=== PATIENT | male | born 1975 | race Caucasian/White ===

== ENCOUNTER → 2019-01-27 17:52 | Outpatient (CLI) | payer OTHER, SELFPAY ==
--- NOTE | 2019-01-27 18:12 | XR_ITS ---
PROCEDURE: XR CERVICAL SPINE 2V CLINICAL INDICATION: pain COMPARISON: CS23 CERVICAL SPINE-2 TO 3 VIEWS from 07/10/2014 FINDINGS: Normal alignment. There is mild degenerative disc disease at C5-C6 and C6-C7. No fracture or dislocation. No lytic or blastic change. IMPRESSION: Degenerative disc disease C5-C6 and C6-C7. These findings have developed since 07/10/2014 Dictated by: Shimon Cutler MD 01/27/2019 18:43 Electronically signed by Shimon Cutler MD in [place] 01/27/2019 18:43
--- NOTE | 2019-01-27 18:12 | XR_ITS ---
PROCEDURE: XR LUMBAR SPINE 2-3V CLINICAL INDICATION: pain Low back pain, bilateral leg pain COMPARISON: No exams were available for comparison FINDINGS: There is normal alignment. No fracture or dislocation. No lytic or blastic change. There is mild sclerosis of the SI joints. The disc spaces are well preserved. IMPRESSION: 1. Negative lumbar spine. 2. Mild sclerosis of the SI joints Dictated by: Shimon Cutler MD 01/27/2019 18:44 Electronically signed by Shimon Cutler MD in [place] 01/27/2019 18:44
--- NOTE | 2019-01-27 18:12 | XR_ITS ---
PROCEDURE: XR SHOULDER LT MIN 2V CLINICAL INDICATION: pain To the COMPARISON: SHOU3L [id number] VIEWS from 06/07/2015 SHOU3R [id number] VIEWS from 09/11/2015 SHOU3R [id number] VIEWS from 06/28/2016 SHOU3L [id number] VIEWS from 01/07/2017 FINDINGS: No fracture, dislocation, lytic change, or blastic change evident. No significant degenerative change IMPRESSION: No acute findings. Dictated by: Shimon Cutler MD 01/27/2019 18:42 Electronically signed by Shimon Cutler MD in [place] 01/27/2019 18:42
[2019-01-27 18:28] LABS: Basophils # 0.1 K/mm3 (0-0.2); Basophils % 0.8 % (0.1-2.0); Eosinophils # 0.2 K/mm3 (0.0-0.4); Eosinophils % 1.8 % (0.1-12.0); Hematocrit 42.9 % (42.0-52.0); Hemoglobin 14.1 g/dL (14.1-18.0); Lymphocytes # 2.8 K/mm3 (0.7-4.5); Lymphocytes % 26.5 % (10-50); Mean Corpuscular HGB Conc 32.8 g/dL (31.8-35.4); Mean Corpuscular Hemoglobin 31.8 pg (27.0-31.2); Mean Corpuscular Volume 96.7 fl (80-94); Mean Platelet Volume 8.2 fl (7.4-10.4); Monocytes # 0.6 K/mm3 (0.1-1.0); Monocytes % 5.7 % (1.7-9.3); Neutrophils # 6.9 K/mm3 (1.8-7.8); Neutrophils % 65.1 % (37.0-80.0); Platelet Count 268 K/mm3 (142-424); Red Blood Count 4.43 M/mm3 (4.60-6.20); Red Cell Distribution Width 13.3 % (11.5-17.5); White Blood Count 10.5 K/mm3 (4.8-10.8)
[2019-01-27 19:32] LABS: Erythrocyte Sedimentation Rate 9 mm/hr (0-15)
[2019-01-27 20:37] LABS: Alanine Aminotransferase 16 U/L (12-78); Albumin Level 4.7 gm/dL (3.4-5.0); Albumin/Globulin Ratio 1.5 (1.1-1.8); Alkaline Phosphatase 69 U/L (46-116); Anion Gap 14.6 mEq/L (5-15); Aspartate Amino Transferase 15 U/L (15-37); Bilirubin,Total 0.3 mg/dL (0.2-1.0); Blood Urea Nitrogen 12 mg/dL (7-18); Calcium 9.5 mg/dL (8.5-10.1); Carbon Dioxide 30 mmol/L (21.0-32.0); Chloride 101 mmol/L (98-107); Creatinine,Serum 0.89 mg/dL (0.70-1.30); Estimated Glomerular Filt Rate 93 ml/min (>60); GFR (African American) 112 ML/MIN (>60); Globulin 3.2 gm/dl (1.3-3.2); Glucose 77 mg/dL (74-106); Potassium 3.6 mmoL/L (3.5-5.1); Sodium 142 mmol/L (136-145); T4 (Thyroxine) 8.2 ug/dl (4.7-13.3); Thyroid Stimulating Hormone 1.39 uIU/ml (0.358-3.740); Total Protein,Serum 7.9 gm/dL (6.4-8.2)
[2019-01-27 20:38] LABS: C-Reactive Protein < 0.2 mg/dL (0.0-0.9)
[2019-01-29 08:07] LABS: Vitamin D 25 Hydroxy 26.7 ng/mL (30.0-100.0)
[2019-01-29 13:14] LABS: Anti-Centromere B Antibodies <0.2 AI (0.0-0.9); Anti-Jo-1 <0.2 AI (0.0-0.9); Anti-Smith Antibody <0.2 AI (0.0-0.9); Antichromatin Antibodies <0.2 AI (0.0-0.9); Antiscleroderma-70 Antibodies <0.2 AI (0.0-0.9); RNP Antibodies 1.4 AI (0.0-0.9); Sjogren's Anti-SS-A <0.2 AI (0.0-0.9); Sjogren's Anti-SS-B <0.2 AI (0.0-0.9)
[2019-01-30 02:08] LABS: PTT-LA 30.9 sec (0.0-51.9); dRVVT 37.6 sec (0.0-47.0)
[2019-01-30 11:06] LABS: Anti-DNA (DS) Ab Qn 1 IU/mL (0-9); RA Latex Turbid. <10.0 IU/mL (0.0-13.9)
[2019-01-30 12:03] LABS: Lupus Reflex Interpretation Comment: (.)
[2019-01-31 08:27] LABS: Anti-Cyclic Citrullinated Pept 9 units (0-19)
== END ==
PROVIDERS: PCP Physician Assistant; Visit Provider Nurse Practitioner Family
DX: M25.512 Pain in left shoulder (principal); M54.2 Cervicalgia; M54.9 Dorsalgia, unspecified
CPT/HCPCS: 36415; 72040; 72100; 73030; 80053; 82652; 84436; 84443; 85025; 85613; 85651; 86140; 86200; 86225; 86235; 86431

== ENCOUNTER 2019-03-11 08:00 | Outpatient (RCR) | payer OTHER, SELFPAY ==
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
== END 2019-03-11 08:05 | disposition home or self-care (01) ==
LOC: PT 08:00
PROVIDERS: Visit Provider Physician Assistant
DX: M53.3 Sacrococcygeal disorders, not elsewhere classified (principal); M50.30 Other cervical disc degeneration, unspecified cervical region
CPT/HCPCS: 97110; 97163

== ENCOUNTER 2019-03-21 18:23 | Emergency (ER) | payer OTHER, SELFPAY ==
--- NOTE | 2019-03-21 18:34 | XR_ITS ---
PROCEDURE: XR HAND LT MIN 3V CLINICAL INDICATION: ACCIDENT pain around 5th metacarpal COMPARISON: No exams were available for comparison FINDINGS: No fracture or dislocation. No lytic or blastic change. There is normal mineralization. There is mild deformity of the head of the 5th metacarpal consistent with old healed boxer's fracture. The remaining metacarpals in all of phalanges appear intact. The carpal bones are normal. There is mild diffuse soft tissue swelling of the hand. The joint spaces are well-preserved. No significant degenerative/arthritic changes. No erosive changes evident. Other findings:None. IMPRESSION: Negative for acute fracture, mild diffuse soft tissue swelling noted Dictated by: Dr. Cj Palacios MD 03/22/2019 10:[address] Cj Palacios MD in [place] 03/22/2019 10:29
[2019-03-21 18:47] VITALS: BP 95/59; PULSE 72; RESP 18; TEMP 36.7; O2SAT 100; BMI 18.8
--- NOTE | 2019-03-21 19:11 | HMH.EDUTC ---
[facility] [place] Impression: Hand pain, left Disposition: Home, Self-Care Condition on Discharge: Good Instructions: DI for Chronic Pain -- Adult, DI for Hand Pain, Ibuprofen Additional Instructions: *RICE, Rest the extremity, Ice 15-20 minutes 3-4 times daily, Compress- wear the renan wrap as discussed as much as possible to help reduce swelling and pain, Elevate the extremity when at rest *Renan wrap is for support and help control swelling, use it except in the shower. Be sure that is not to tight but not to loose either *Elevate when resting *Ibuprofen every 6-8 hours as needed for pain an inflammation. If need something more can take Tylenol in between doses of Ibuprofen to help Immediately follow up with your family doctor for new or worsening of symptoms, or no noticeable improvement over the next 3-5 days Return if needed Straight to ER if any life threatening symptoms Referrals: Julia Bolton PA [Primary Care Provider] - As needed Time of Disposition: 19:17 Medical Decision Making - Moncho Inquiry Pt receiving controlled substance: No Moncho was queried for this patient: No Vital Signs: 03/21/19 18:47 Temperature 98.0 F Temperature Source Oral Pulse Rate [Radial] 72 Respiratory Rate 18 Blood Pressure [Right Arm] 95/59 L Blood Pressure Mean [Right Arm] 71 Blood Pressure Source [Right Arm] Automatic Cuff Blood Pressure Position [Right Arm] Sitting 02 Sat by Pulse Oximetry 100 Oxygen Delivery Method Room Air Orders (Tests/Meds): ORDERS Category Date Time Status XR hand LT min 3V Stat Exams 03/21/19 18:34 Taken - Radiology Data #1 Image(s): Hand Image Reviewed: Yes I reviewed the patient's radiology image Preliminary Findings: No Fracture Seen No acute finding, old fracture noted [address] [place] [address] HPI - General Stated complaint: possible broken left hand Time Seen by Provider: 03/21/19 19:11 Mode of Arrival: Ambulatory Source of Information: Patient Limitations: No Limitations Description of Symptoms (Recalled from Triage Doc. by RN): HURT LEFT HAND HEENT Symptoms (Recalled from RN notes): No Resp Symptoms (Recalled from RN notes): No Skin Symptoms (Recalled from RN notes): No MS Symptoms (Recalled from RN notes): Yes Functional Status (Recalled from RN notes): WNL - History of Present Illness Provider Complaint: Patient states that he hurt his left hand years ago and has been having pain on and off in the hand ever since States that last time he had it checked was in sep State that earlier today he started having some pain again in his left hand Denies new injury and wanted to have it checked - Related Data Previous Rx's Medication Instructions Recorded ergocalciferol (vitamin D2) 1,250 50,000 unit PO QWEEK #4 cap 02/03/19 mcg (50,000 unit) capsule Allergies Allergy/AdvReac Type Severity Reaction Status Date / Time shellfish derived Allergy Intermediate I-RASH Verified 01/23/19 13:35 [From SHELLFISH (FOOD/DRUG)] naproxen [From NAPROSYN] Allergy Unknown Verified 01/23/19 13:35 sumatriptan [From IMITREX] Allergy Unknown Verified 01/23/19 13:35 topiramate [From Topamax] Allergy Verified 01/23/19 13:35 From SHELLFISH (FOOD/DRUG) Allergy Intermediate I-RASH Uncoded 01/23/19 13:35 SHRIMP Allergy Unknown Uncoded 01/23/19 13:35 - Worker's Comp Is this a Worker's Comp case?: No [facility] History - Hepatitis A Screen Drug use history?: No High risk sexual behaviors?: No History of sexually transmitted infection?: No Currently employed?: No Childcare worker?: No Do you have indoor plumbing?: Yes Do you have electricity?: Yes Attestation statement:: This patient has been screened for Hepatitis A risk factors. Medical History: Denies:: Diabetes Mellitus Type 1, Diabetes Mellitus Type 2 Other Surgeries: Yes: Other Amputation: No Fractures: Yes Comment: neck x3 - Social History Educational Level: Completed High School Smoking Sta
[2019-03-21 19:20] VITALS: BP 95/59; PULSE 72; RESP 18; TEMP 36.7; O2SAT 100
== END 2019-03-21 19:21 | disposition home or self-care (01) ==
PROVIDERS: Emergency Provider Nurse Practitioner; PCP Physician Assistant
DX: M79.642 Pain in left hand (principal); Z88.8 Allergy status to other drugs, medicaments and biological substances; E55.9 Vitamin D deficiency, unspecified; F17.210 Nicotine dependence, cigarettes, uncomplicated; F12.10 Cannabis abuse, uncomplicated
CPT/HCPCS: 29125; 73130; 99201

== ENCOUNTER 2024-12-03 09:35 | Emergency (ER) | payer SELFPAY ==
[2024-12-03] VITALS (7 sets, daily range): BP systolic 95–110; BP diastolic 67–70; PULSE 64–79; RESP 16–17; TEMP 36.6; O2SAT 96–100; BMI 20.3
[2024-12-03 09:44] LABS: Microscopic, Urine URINE MICROSCOPIC (MICROSCOPIC)
[2024-12-03 09:45] LABS: Bilirubin,Urine Negative (Negative); Color,Urine YELLOW (Yellow); Glucose,Urine (UA) Negative (Negative); Ketones,Urine Negative (Negative); Leukocyte Esterase,Urine Negative (Negative); PH,Urine 6.5 (5.0-8.5); Protein,Urine Negative (Negative); Specific Gravity, Urine 1.010 (1.005-1.030); Urobilinogen,Urine 0.2 EU/dl (0.2)
--- OUTSIDE RECORDS SUMMARY | 2024-12-03 09:47 | XMS_ITS | Clinical Summary ---
Author Organization Healthcare Address [address] 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 Name Role Phone Kylie Grace POTATO BUCKER Primary Care Provider [phone] Family History Medical History Relation Name Comments Conversions - Other Brother Back pro blem Anxiety disorder Mother Dementia Mother Depression Mother Migraines Mother Relation Name Status Comments Brother Mother Social History Tobacco Use Types Packs/Day Years Used Date Smoking Tobacco: Every Day Alcohol Use Standard Drinks/Week Comments Yes 0 (1 standard drink = 0.6 oz pure alcohol) Alcoholic Drinks/day: Occasional alcohol use Sex and Gender Information Value Date Recorded Sex Assigned at Not on file Legal Sex Male 6:36 PM EDT Gender Identity Not on file Sexual Orientation Not on file Last Filed Vital Signs Vital Sign Reading Time Taken Comments Blood Pressure - - Pulse - - Temperature - - Respiratory Rate - - Oxygen Saturation - - Inhaled Oxygen Concentration - - Weight 56 kg (123 lb 7.3 oz) 08/31/2016 1:49 PM EDT Height 170.2 cm (5' 7 ) 08/24/2016 10:32 AM EDT Body Mass Index 19.34 08/24/2016 10:32 AM EDT Plan of Treatment Not on file Care Teams Bag Making Machine Operator Relationship Specialty Start Date End Date Kylie Grace APRN [address] [place] [id number] PCP - General 08/06/20
--- OUTSIDE RECORDS SUMMARY | 2024-12-03 09:47 | XMS_ITS | Clinical Summary ---
Author Organization [facility] Address [facility] [place] [place] [address] Care Team Providers Care Resident Engineer Name Role Phone Pcp, No Primary Care Provider [phone] Source Comments This information has been disclosed to you from confidential records protectedfrom disclosure by state law. You shall make no further disclosure of thisinformation without the specific, written, and informed release of theindividual to whom it pertains, or as otherwise permitted by law. A generalauthorization for the release of medical or other information is not sufficientfor the purposes of therelease of HIV test results or diagnoses. [id number] Allergies Active Allergy Reactions Criticality Noted Date Comments Adhesive Tape-Silicones Medium 06/07/2022 Swelling ; rash; soreness; Can use paper tape Ketorolac Swelling High 03/16/2022 Naproxen Anaphylaxis,Swelling High 02/16/2018 Shellfish Containing Products Nausea And Vomiting Low 09/27/2012 Other reaction(s): Other - comment required States It feels like battery acid in my mouth Hard to breathe Sumatriptan Succinate 09/27/2012 Other reaction(s): Other - comment required agitated Tramadol Anxiety,Swelling High 10/30/2019 Medications ibuprofen (MOTRIN) 800 MG tablet Take 1 tablet (800 mg total) by mouth every 8 hours. 30 tablet 06/14/2022 Active psyllium (METAMUCIL) packet Take 1 packet by mouth daily. Active Active Problems Problem Noted Date Diagnosed Date Grade III hemorrhoids 05/17/2022 Family History Medical History Relation Comments Heart disease Maternal Aunt Heart disease Maternal Uncle Relation Status Comments Maternal Aunt Maternal Uncle Social History Tobacco Use Types Packs/Day Years Used Date Smoking Tobacco: Every Day Cigarettes Smokeless Tobacco: Never Tobacco Cessation:Ready to Q uit: Not Asked; Counseling Given: Not Answered Alcohol Use Standard Drinks/Week Comments Not Currently 0 (1 standard drink = 0.6 oz pur e alcohol) quit 5 months ago( 05/2022) Sex and Gender Information Value Date Recorded Sex Assigned at Male 06/14/2022 12:55 PM EDT Legal Sex Male 12:28 PM EST Gender Identity Male 06/14/2022 12:55 PM EDT Sexual Orientation Not on file Last Filed Vital Signs Vital Sign Reading Time Taken Comments Blood Pressure 116/86 06/14/2022 5:23 PM EDT Pulse 96 06/30/2022 2:01 PM EDT Temperature 36.1 C (97 F) 06/14/2022 5:23 PM EDT Respiratory Rate 10 06/14/2022 5:23 PM EDT Oxygen Saturation 97% 06/30/2022 2:01 PM EDT Inhaled Oxygen Concentration 97% 06/30/2022 2 :01 PM EDT Weight 50.8 kg (112 lb) 06/30/2022 2:01 PM EDT Height 170.2 cm (5' 7 ) 06/30/2022 2:01 PM EDT Body Mass Index 17.54 06/30/2022 2:01 PM EDT Plan of Treatment Health Maintenance Due Date Last Done Comments Abnormal Colonoscopy Follow Up 1974 Hepatitis C Screening (MyChart) 1974 Alcohol Misuse Screening 1992 Depression Screening 1992 HIV Screening 1992 Immunization: Hepatitis B (1 of 3 - 19+ 3-dose series) 1993 Immunization: Pneumococcal (1 of 2 - PCV) 1993 Immunization: DTaP/Tdap/Td (1 - Tdap) 10/05/201002/2011 Cologuard (FIT-DNA) 07/30/2019 Colonoscopy 07/30/2019 Colorectal Cancer Screening (MyChart) 07/30/2019 Stool Testing (gFOBT) 07/30/2019 Immunization: Zoster (1 of 2) 2024 Lung Cancer Screening 2024 Immunization: COVID-19 ( - season) 2024 Immunization: Influenza (MyChart) (#1) 2024 Insurance [employer] Care Teams Resident Engineer Relationship Specialty Start Date End Date Pcp, No No Address PCP - General 04/18/22
--- NOTE | 2024-12-03 09:58 | US_ITS ---
FINAL REPORT TECHNIQUE: Sonographic images of the right upper quadrant were obtained. CLINICAL HISTORY: RUQ pain, N/V FINDINGS: PANCREAS: Unremarkable. LIVER: Homogeneous. No focal hepatic lesion. No intrahepatic biliary ductal dilatation. GALLBLADDER: No gallstones. No gallbladder wall thickening or pericholecystic fluid. COMMON DUCT: 4 mm. Normal for age. RIGHT KIDNEY: The right kidney measures 10.0 cm. There is no hydronephrosis, mass, or stone. FREE FLUID: None. IMPRESSION: Unremarkable ultrasound of the right upper quadrant. Reviewed, Interpreted and Dictated by Cristel Campos MD Transcribed by Rosmery Mcclellan Authenticated and . [facility]
[2024-12-03 09:59] LABS: Bacteria,Urine Trace /lpf; WBC,Urine Occasional #/hpf (0-3)
--- NOTE | 2024-12-03 09:59 | ED_ITS ---
Discharge Plan Disposition Patient Disposition: Home, Self-Care Prescriptions Prescriptions: New ondansetron 4 mg tablet,disintegrating 4 mg PO Q6H PRN (Reason: nausea and vomiting) Qty: 16 0RF No Action ergocalciferol (vitamin D2) 50,000 unit capsule 50,000 unit PO QWEEK Qty: 4 1RF Referrals Follow up/Referrals: Provider,Referral, MD [Primary Care Provider, Medical] - See instructions Activity Restrictions/Add. Instructions Additional Instructions/Restrictions: You are being provided a list of follow-up with your primary. You are being prescribed Zofran to help with nausea. If you develop any new or worsening symptoms, or if you become concerned for your health for any reason, return to the emergency department for evaluation. Clinical Impressions Clinical Impression: Nausea & vomiting, Abdominal pain, RUQ Instructions Patient Instructions: DI for Acute Abdominal Pain Print Language Print Language: Azeri Discharge ED Provider: Lex Ly Adult HPI General Chief complaint: Abdominal Pain Stated complaint: R side pain x 2 days Time Seen by Provider: 12/03/24 09:48 Mode of Arrival: Ambulatory Source of Information: Patient Description of Symptoms (Recalled from ER Triage Doc. by RN): Patient presents to ED from home with c/o right flank pain x2 days, notes he started to experience some nausea and vomiting this AM. Reports hx of kidney stones but states this feel different, notes increase in urination. History of Present Illness HPI narrative: Wild Galvez is a 49y male with history of previous kidney stones, tobacco use, obstruction status surgery, who presents to the emergency department for complaints of right upper abdominal pain, nausea, vomiting and diarrhea. Patient's symptoms began 2 days ago. The pain is located in the lower quadrant. He states that it is sometimes worse when lying down. He does not know if it is worse with eating as he has not tried eating since this happened. He had 1 episode of vomiting diarrhea yesterday he denies any chest pain, he does report that he had a similar issue as a child but was worked up extensively and they could not find the problem. He states that this does not feel like a kidney stone. He denies any hematuria, dark urine, or dysuria. Related Data Previous Rx's ?Medication ?Instructions ?Recorded ergocalciferol (vitamin D2) 1,250 50,000 unit PO QWEEK #4 caps 02/03/19 mcg (50,000 unit) capsule ondansetron 4 mg disintegrating 4 mg PO Q6H PRN nausea and 12/03/24 tablet vomiting #16 tabs Allergies Allergy/AdvReac Type Severity Reaction Status Date / Time shellfish derived (From Allergy Intermediate I-RASH Verified 01/23/19 13:35 SHELLFISH (FOOD/DRUG)) naproxen (From NAPROSYN) Allergy Unknown Unknown Verified 12/03/24 10:01 allergy reaction sumatriptan (From IMITREX) Allergy Unknown Unknown Verified 12/03/24 10:01 allergy reaction topiramate (From Topamax) Allergy Unknown Verified 12/03/24 10:01 allergy reaction PFSH PFSH Disclaimer: The information contained in this section may have been updated after the patient was seen, as this information can be updated by other users. Social History Smoking Status: Current every day smoker tobacco type: cigarettes packs per day: 1 alcohol intake: never substance use type: marijuana current occupational status: unemployed Travel in the last 8 weeks?: None Have you lived/traveled outside [place] in past 30 days?: No Contact w/someone who lives/traveled outside [place] past 30 days?: No Exposure to someone with infectious disease in past 14 days?: No Do you have a fever (greater than 100.4 F or 38 C)?: No Have you tested positive for COVID-19?: No Exposed to someone with COVID-19 in past 14 days?: No Do you have a sore throat?: No Do you have a cough?: No Do you have any weakness?: No Do you have any diarrhea?: No Are you experiencing any unusual bleeding?: No Do you have any muscle aches/pain?: No Do you have any abdominal pain?: No Are you experiencing loss of taste or smell?: No Other Medical History Have you received the Flu Vaccine for this season: No Have you received the Pneumonia Vaccine: No ROS Obtained: Yes Systems reviewed as appropriate & no additional complaints except as documented Physical Exam General General appearance: alert and in no apparent distress Head Head exam: atraumatic Eye Eye exam: Present normal appearance ENT ENT exam: Present normal external ear exam Neck Neck exam: Present full ROM Chest Chest inspection: Present symmetric chest wall rise Respiratory Respiratory exam: Present normal lung sounds bilaterally; Absent respiratory distress, wheezes or stridor Cardiovascular Cardiovascular exam: Present regular rate and normal rhythm Abdominal Exam Abdominal exam: Present soft, tenderness (RUQ with guarding) and guarding; Absent distention or rigidity exam: Present deferred Extremities Exam Extremities exam: Present normal inspection Back Exam Back exam: Present normal inspection Neurological Exam Neurological exam: Present alert and oriented X3 Psychiatric Psychiatric exam: Present normal affect Skin Skin exam: Present warm and dry Medical Decision Making Medical Records Screening: Per USPSTF and CDC recommendations, given the prevalence of disease in our region, it is our hospital?s policy to screen for HIV and viral Hepatitis for all patients aged 18 and over and those with ongoing risk factors. Moncho Inquiry Pt receiving controlled substance: No Vital Signs: 12/03/24 09:45 12/03/24 09:50 12/03/24 10:00 Temperature 97.8 F Temperature Source Oral Pulse Rate 71 79 Pulse Rate [Left] 74 Respiratory Rate 17 17 17 Blood Pressure 110/69 Blood Pressure [Right Arm] 101/70 L Blood Pressure Mean 74 Blood Pressure Mean [Right Arm] 80 Blood Pressure Source Blood Pressure Source [Right Arm] Automatic Cuff Blood Pressure Position Blood Pressure Position [Right Arm] Supine 02 Sat by Pulse Oximetry 99 100 98 Oxygen Delivery Method Room Air Room Air Room Air 12/03/24 10:30 12/03/24 11:00 12/03/24 12:11 Temperature Temperature Source Pulse Rate 74 64 65 Pulse Rate [Left] Respiratory Rate Blood Pressure 106/68 L 95/68 L 95/67 L Blood Pressure [Right Arm] Blood Pressure Mean 75 74 Blood Pressure Mean [Right Arm] Blood Pressure Source Blood Pressure Source [Right Arm] Blood Pressure Position Blood Pressure Position [Right Arm] 02 Sat by Pulse Oximetry 98 96 99 Oxygen Delivery Method Room Air Room Air 12/03/24 12:42 Temperature 97.8 F Temperature Source Oral Pulse Rate 65 Pulse Rate [Left] Respiratory Rate 16 Blood Pressure 95/67 L Blood Pressure [Right Arm] Blood Pressure Mean Blood Pressure Mean [Right Arm] Blood Pressure Source Automatic Cuff Blood Pressure Source [Right Arm] Blood Pressure Position Sitting Blood Pressure Position [Right Arm] 02 Sat by Pulse Oximetry Oxygen Delivery Method Room Air Lab Data Lab Results 12/03/24 09:40: Urine Color Yellow, Urine Appearance Clear, Urine pH 6.5, Ur Specific [place] 1.010, Urine Protein Negative, Urine Glucose (UA) Negative, Urine Ketones Negative, Urine Blood Negative, Urine Nitrate Negative, Urine Bilirubin Negative, Urine Urobilinogen 0.2, Ur Leukocyte Esterase Negative, Urine RBC None, Urine WBC Occasional, Ur Squamous Epith Cells None, Urine Bacteria Trace 12/03/24 09:47: WBC 6.9, RBC 5.23, Hgb 15.7, Hct 48.0, MCV 91.8, MCH 30.0, MCHC 32.7, RDW 13.8, Plt Count 273, MPV 10.6 H, Neut % (Auto) 56.1, Lymph % (Auto) 31.0, [place] % (Auto) 7.4, Eos % (Auto) 3.5, Baso % (Auto) 1.4, Neut # (Auto) 3.9, Lymph # (Auto) 2.1, [place] # (Auto) 0.5, Eos # (Auto) 0.2, Baso # (Auto) 0.1, Sodium 139, Potassium 4.2, Chloride 102, Carbon Dioxide 31 H, Anion Gap 10.2, BUN 13, Creatinine 0.90, Estimated Creat Clear 82, Estimated GFR 89, Est GFR ( Amer) 108, Glucose 108 H, Calcium 9.7, Total Bilirubin 0.4, AST 23, ALT 13, Alkaline Phosphatase 64, C-Reactive Protein 0.4, Total Protein 7.4, Albumin 4.6, Globulin 2.8, Albumin/Globulin Ratio 1.6, Lipase 39, HCV Ab BLADE w/Rflx PCR Qn Negative, HIV Ag/Ab Combo Qual Negative 12/03/24 09:47 12/03/24 09:47 Orders (Tests/Meds): ED MEDICATIONS Discontinued Medications Generic Name Dose Route Start Last Admin Trade Name Freq PRN Reason Stop Dose Admin Morphine Sulfate 2 mg 12/03/24 09:58 12/03/24 10:13 Morphine 2mg/Ml Syringe IV 12/03/24 09:59 2 mg ONCE ONE Administration Ondansetron HCl 4 mg 12/03/24 09:58 12/03/24 10:13 Ondansetron 4mg/2ml Vial IV 12/03/24 09:59 4 mg ONCE ONE Administration ORDERS Category Date Time Status US RUQ [US abdomen limited] Stat Exams 12/03/24 09:58 Completed CBC w/Auto Diff [Complete Blood Count Auto Diff] Stat Lab 12/03/24 09:47 Completed CMP [Comprehensive Metabolic Panel] Stat Lab 12/03/24 09:47 Completed CRP [C-Reactive Protein] Stat Lab 12/03/24 09:47 Completed HIV Combo Stat Lab 12/03/24 09:47 Completed Hepatitis C Ab Qual. W/ RFX Stat Lab 12/03/24 09:47 Completed Lipase Stat Lab 12/03/24 09:47 Completed UA [Urinalysis and Microscopic] Stat Lab 12/03/24 09:40 Completed Medical Decision Narrative: Wild Galvez is a 49y male with history of previous kidney stones, tobacco use, obstruction status surgery, who presents to the emergency department for complaints of right upper abdominal pain, nausea, vomiting and diarrhea. Patient's symptoms began 2 days ago. The pain is located in the lower quadrant. He states that it is sometimes worse when lying down. He does not know if it is worse with eating as he has not tried eating since this happened. He had 1 episode of vomiting diarrhea yesterday he denies any chest pain, he does report that he had a similar issue as a child but was worked up extensively and they could not find the problem. He states that this does not feel like a kidney stone. He denies any hematuria, dark urine, or dysuria. However, patient blood pressure 101/70, heart afebrile, oxygen saturation percent on room air. Physical exam, stated above, overall well-appearing male in no acute gross. He is sitting upright in stretcher. He has localized tenderness to the right upper quadrant with guarding. Abdomen is soft and not peritonitic. Rest of his abdomen is nontender. Patient states his last oral intake was last night. Differential diagnosis includes, but is not limited to: Acute cholecystitis, choledocholithiasis, GERD acute pancreatitis, gastritis, peptic ulcer disease, ureteral lithiasis/kidney stone, pyonephritis, pericarditis, among others. The most morbid conditions were considered and workup was based on these. Workup in the emergency department included: CBC with differential, CMP, lipase, EKG, lactic acid. Patient treated initially with 2 mg morphine and 4 mg IV Zofran. Right upper quadrant ultrasound ordered for concern for biliary pathology. Patient's workup showed no evidence of urinary tract infection, no hematuria. No leukocytosis, hemoglobin and hematocrit within normal limits. CMP grossly unremarkable nonactionable with no MARCO. Liver enzymes and bilirubin within normal limits. CRP normal at 0.4. Right upper quadrant ultrasound interpreted by me personally. No evidence of gallstones or cholecystitis. See interpretation for details. On reassessment, patient remains stable condition. His not had any additional vomiting episodes or worsening of his pain here. Given this, is felt the patient is appropriate for discharge at this time with a prescription for Zofran for nausea. Will provide primary care resources to get established with a primary care physician. Return precautions were given. All questions were answered. He demonstrated understanding and was in agreement this plan. He was then discharged from the emergency department in stable condition. Critical Care Critical Care Time Critical Care Time: No
--- NOTE | 2024-12-03 10:01 | ECG_ITS ---
APPROVED REPORT Exam: Resting ECG HR:71 bpm ECG Measurements Heart Rate 71 AXES DE 125 P 83 QRSd 85 QRS 87 QT 378 T 69 QTc 400 Conclusion SINUS RHYTHM NORMAL ECG UNCONFIRMED REPORT Normal sinus rhythm. No ST elevation or depression Electronically signed by : ANDER WADE, 12/03/2024 15:45:12
[2024-12-03 10:09] LABS: Hematocrit 48.0 % (42.0-52.0); Hemoglobin 15.7 g/dL (14.1-18.0); Immature Granulocytes % 0.6 %; Mean Corpuscular HGB Conc 32.7 g/dL (31.8-35.4); Mean Corpuscular Hemoglobin 30.0 pg (27.0-31.2); Mean Corpuscular Volume 91.8 fl (80-94); Nucleated Red Blood Cells % 0 %; Platelet Count 273 K/mm3 (142-424); Red Blood Count 5.23 M/mm3 (4.60-6.20); Red Cell Distribution Width-SD 46.7 fL; White Blood Count 6.9 K/mm3 (4.8-10.8)
[2024-12-03 10:10] LABS: Alanine Aminotransferase 13 U/L (12-78); Albumin Level 4.6 g/dl (3.5-5.0); Albumin/Globulin Ratio 1.6 (1.1-1.8); Alkaline Phosphatase 64 U/L (38-126); Anion Gap 10.2 mEq/L (5-15); Aspartate Amino Transferase 23 U/L (17-59); Bilirubin,Total 0.4 mg/dl (0.2-1.3); Blood Urea Nitrogen 13 mg/dl (9-20); Calcium 9.7 mg/dl (8.4-10.2); Carbon Dioxide 31 mmol/L (22.0-30.0); Chloride 102 mmol/L (98-107); Creatinine Clearance Estimated 82 mL/min (50-200); Creatinine,Serum 0.90 mg/dl (0.66-1.25); Estimated Glomerular Filt Rate 89 ml/min (>60); GFR (African American) 108 ML/MIN (>60); Globulin 2.8 g/dL (1.3-3.2); Glucose 108 mg/dl (74-100); Lipase 39 U/L (23-300); Potassium 4.2 mmoL/L (3.5-5.1); Sodium 139 mmol/L (136-145); Total Protein,Serum 7.4 g/dl (6.3-8.2)
[2024-12-03] MEDS: MORPHINE 2MG/ML SYRINGE 2 MG IV (10:13)
[2024-12-03] MEDS: ONDANSETRON 4MG/2ML VIAL 4 MG IV (10:13)
[2024-12-03 10:16] LABS: C-Reactive Protein 0.4 mg/L (0-4)
[2024-12-03 11:26] LABS: Hepatitis C Ab Qual. W/ RFX NEGATIVE (Negative)
== END 2024-12-03 12:43 | disposition home or self-care (01) ==
PROVIDERS: Emergency Provider Student in an Organized Health Care Education/Training Program
DX: R10.11 Right upper quadrant pain (principal); R11.2 Nausea with vomiting, unspecified; F17.210 Nicotine dependence, cigarettes, uncomplicated; Z87.442 Personal history of urinary calculi
CPT/HCPCS: 76705; 80053; 81001; 83690; 85025; 86140; 86803; 87389; 93005; 96374; 96375; 99285; J2270; J2405